=== PATIENT | female | born 1985 | race Caucasian/White ===

== ENCOUNTER → 2019-08-19 15:02 | Outpatient (BNVA) | payer MEDICARE, MEDICAID, SELFPAY | PROVIDERS: Family Provider Internal Medicine; PCP Internal Medicine; Visit Provider Specialist | DX: G43.711 Chronic migraine without aura, intractable, with status migrainosus (principal) | CPT/HCPCS: 64615; J0585 ==

== ENCOUNTER → 2019-11-25 15:10 | Outpatient (BNVA) | payer MEDICARE, MEDICAID, SELFPAY | PROVIDERS: Family Provider Internal Medicine; PCP Internal Medicine; Visit Provider Specialist | DX: G43.711 Chronic migraine without aura, intractable, with status migrainosus (principal); F41.9 Anxiety disorder, unspecified | CPT/HCPCS: 64615; 99212; 99213; J0585 ==

== ENCOUNTER → 2019-12-01 10:05 | Outpatient (BNVA) | payer MEDICARE, MEDICAID, SELFPAY | PROVIDERS: Family Provider Internal Medicine; PCP Internal Medicine; Visit Provider Nurse Practitioner Women's Health | DX: L70.0 Acne vulgaris (principal); Z30.41 Encounter for surveillance of contraceptive pills; N92.1 Excessive and frequent menstruation with irregular cycle | CPT/HCPCS: 80053 ==

== ENCOUNTER 2020-09-05 20:08 | Emergency (ER) | payer MEDICARE, MEDICAID, SELFPAY ==
--- NOTE | 2020-09-05 20:16 | XR_ITS ---
WS: [id number] LEFT FOOT: 3 VIEW(S) TECHNIQUE: AP, oblique and lateral. HISTORY: injury COMPARISON: None available. No acute fracture or dislocation. Normal tarsal/metatarsal alignment. Soft tissue injury at the first distal phalanx. XR/XR foot LT min 3V* [id number] IMPRESSION: Soft tissue injury distal first phalanx but no fracture.
[2020-09-05 21:01] VITALS: BP 128/83; PULSE 105; RESP 14; TEMP 36.7; O2SAT 96; BMI 20.5
[2020-09-05] MEDS: HYDROcodone-acetaminophen 5-325 mg Tablet 1 TAB PO (21:17)
[2020-09-05 23:51] VITALS: BP 144/90; PULSE 96; RESP 18; O2SAT 97
[2020-09-06] MEDS: lidocaine 1% INJ 20 mL INTRADERMA (00:11)
[2020-09-06] MEDS: ondansetron 4 MG Tablet 8 MG PO (00:14)
[2020-09-06] MEDS: cephALEXin 500 mg Capsule PO (00:54)
[2020-09-06] MEDS: HYDROcodone-acetaminophen 5-325 mg Tablet 1 TAB PO (00:55)
[2020-09-06 00:57] VITALS: BP 132/90; PULSE 91; RESP 16; O2SAT 95
--- NOTE | 2020-09-06 01:31 | ED_ITS ---
HPI - Extremity Problem General: Chief complaint: Extremity Injury, Lower Stated complaint: GREAT TOE PAIN/L FOOT Time Seen by Provider: 09/05/20 23:50 History of Present Illness: HPI Narrative: Patient dropped a keg on her right large toe tonight while at work. Her toenail was avulsed. She comes in with wrapped in. Complain of pain. Complaint: extremity pain Onset (ago): hour(s) Pain Consistency: constant Location: right and toe Severity scale (1-10): 4 Quality: aching Associated symptoms: Deny fever(s) Review of Systems Const: Denies: fever(s) or chills Skin/Breast: Reports: other (Toenail avulsion right big toe) Psych: Denies: anxiety or depression PFSH ED PFSH: Medical History (Updated 09/06/20 @ 00:27 by YAMILEX Finch) Anxiety Chiari malformation Chronic migraine without aura, intractable, with status migrainosus GERD (gastroesophageal reflux disease) History of PCOS Metrorrhagia Surgical History H/O removal of cyst on her back History of cholecystectomy (~2010) Family History Father Hypertension Mother Hypertension Grandmother Hypertension Paternal grandmother Social History Smoking and tobacco status: never smoked Alcohol intake: never Female Reproductive History: Para: 1 Spontaneous abortions: No Physical Exam Const: COMMON NORMALS: average body habitus Psych: COMMON NORMALS: mental status grossly normal Skin: OTHER: Toenail partially avulsed on the right big toe which is hanging on by skin on the medial border some none on the lateral border no active bleeding x-ray was showed no fracture Course Vital Signs: Vital signs: Vital Signs Temperature 98.1 F 09/05/20 21:01 Pulse Rate 91 09/06/20 00:57 Respiratory Rate 16 09/06/20 00:57 Blood Pressure 132/90 09/06/20 00:57 Pulse Oximetry 95 09/06/20 00:57 MDM - Extremity (Nontraumatic) MDM Narrative: Medical decision making narrative: Removed toenail on right large toe. With lidocaine prep 1% and Betadine. No difficulty with removal was wrapped Discharge Plan Discharge Patient Disposition: Home Clinical Impression: Avulsion of nail plate Condition: Stable Prescriptions: New hydrocodone-acetaminophen 5-325 mg tablet 1 tab PO TID PRN (Reason: pain) Qty: 7 RF: 0 Keflex 500 mg capsule 500 mg PO TID 7 Days Qty: 21 RF: 0 No Action topiramate [Topamax] 100 mg tablet 150 mg PO QDAY RF: 0 Botox 100 unit recon soln 155 unit IM ONCE RF: 0 pantoprazole [Protonix] 20 mg tablet,delayed release (DR/EC) 20 mg PO QDAY RF: 0 lorazepam 1 mg tablet 1 mg PO DAILY PRN (Reason: anxiety) Qty: 30 RF: 1 spironolactone 50 mg tablet 50 mg PO QAM Qty: 90 RF: 3 cyclobenzaprine 10 mg tablet 10 mg PO Q8H Qty: 30 RF: 1 diazepam [Valium] 2 mg tablet 5 mg PO .PRN PRN (Reason: anxiety) Qty: 7 RF: 2 bupropion HCl 150 mg tablet extended release 24 hr 150 mg PO QAM Qty: 30 RF: 5 Emgality Pen 120 mg/mL pen injector 120 mg SUBCUT ONCE Qty: 1 RF: 0 Emgality Syringe 120 mg/mL syringe 240 mg SUBCUT .MONTHLY Qty: 2 RF: 4 trazodone 100 mg tablet 100 mg PO QDAY Qty: 30 RF: 3 norethindrone-ethin estradiol 1-35 mg-mcg (21) tablet 1 tab PO QDAY Qty: 63 RF: 1 fluconazole [Diflucan] 150 mg tablet 150 mg PO DAILY Qty: 2 RF: 0 Discharge Orders: Discharge ED (Routine); Ordered 09/06/20 Ordered By: Qasim Bernardo Referrals: Stone Rebolledo DO [Primary Care Provider] - Discharge Diet: Usual diet Discharge Activity: Increase activity as tolerated Patient Instructions: Toenail/Fingernail Removal (ED) Activity Restrictions/Additional Instructions: Follow-up with medical provider as directed. Take medications as prescribed. Return to the ER or your medical provider if condition worsens. Please read and understand discharge instructions. If any questions ask please. Apply petroleum jelly or Vaseline over the wound daily keep a nonstick pad on it and dress it daily follow-up your family medical provider any problems develop Coding Level of Care Code ED Oval Or Circular Glass Cutter for Chg Fwd Exam Expanded Problem Focused
== END 2020-09-06 00:58 | disposition home or self-care (01) ==
PROVIDERS: Emergency Provider Nurse Practitioner Family; PCP Internal Medicine
DX: S91.201A Unspecified open wound of right great toe with damage to nail, initial encounter (principal); W20.8XXA Other cause of strike by thrown, projected or falling object, initial encounter
CPT/HCPCS: 12345; 73630; 99281; 99283; Q0162

== ENCOUNTER → 2020-11-14 16:30 | Outpatient (BNVA) | payer MEDICARE, MEDICAID, SELFPAY | PROVIDERS: PCP Internal Medicine; Visit Provider Nurse Practitioner Women's Health | DX: N92.1 Excessive and frequent menstruation with irregular cycle (principal); L70.0 Acne vulgaris; K21.9 Gastro-esophageal reflux disease without esophagitis; Z01.419 Encounter for gynecological examination (general) (routine) without abnormal findings; Z87.42 Personal history of other diseases of the female genital tract; N30.10 Interstitial cystitis (chronic) without hematuria | CPT/HCPCS: 80048 ==

== ENCOUNTER → 2020-11-22 13:06 | Outpatient (BNVA) | payer MEDICARE, MEDICAID, SELFPAY | PROVIDERS: PCP Internal Medicine; Visit Provider Nurse Practitioner Women's Health | DX: R93.89 Abnormal findings on diagnostic imaging of other specified body structures (principal) | CPT/HCPCS: 76830 ==

== ENCOUNTER → 2020-12-14 09:58 | Outpatient (BNVA) | payer MEDICARE, MEDICAID, SELFPAY | PROVIDERS: PCP Internal Medicine; Visit Provider Specialist | DX: G43.709 Chronic migraine without aura, not intractable, without status migrainosus (principal) | CPT/HCPCS: 64615; J0585 ==

== ENCOUNTER 2021-01-22 16:12 | Outpatient (CLI) | payer MEDICARE, MEDICAID, SELFPAY | END 2021-01-22 16:13 | disposition home or self-care (01) | LOC: SPT 16:13 | PROVIDERS: PCP Internal Medicine; Visit Provider Podiatrist Foot & Ankle Surgery | DX: Z46.89 Encounter for fitting and adjustment of other specified devices (principal); M79.673 Pain in unspecified foot | CPT/HCPCS: 97760; L1902 ==

== ENCOUNTER → 2021-03-08 13:07 | Outpatient (BNVA) | payer MEDICARE, MEDICAID, SELFPAY | PROVIDERS: PCP Internal Medicine; Visit Provider Specialist | DX: G43.709 Chronic migraine without aura, not intractable, without status migrainosus (principal); G25.81 Restless legs syndrome; G93.5 Compression of brain | CPT/HCPCS: 64615; 99213; J0585 ==

== ENCOUNTER → 2021-07-19 11:43 | Outpatient (BNVA) | payer MEDICARE, MEDICAID, SELFPAY | PROVIDERS: PCP Internal Medicine; Visit Provider Specialist | DX: G43.711 Chronic migraine without aura, intractable, with status migrainosus (principal) | CPT/HCPCS: 64615; J0585 ==

== ENCOUNTER → 2021-10-11 12:00 | Outpatient (BNVA) | payer MEDICARE, MEDICAID, SELFPAY | PROVIDERS: PCP Internal Medicine; Visit Provider Specialist | DX: G43.711 Chronic migraine without aura, intractable, with status migrainosus (principal); R25.2 Cramp and spasm | CPT/HCPCS: 64615; 99213; J0585 ==

== ENCOUNTER → 2021-11-21 09:45 | Outpatient (BNVA) | payer MEDICARE, MEDICAID, SELFPAY | PROVIDERS: PCP Internal Medicine; Visit Provider Nurse Practitioner Women's Health | DX: L70.9 Acne, unspecified (principal); Z01.419 Encounter for gynecological examination (general) (routine) without abnormal findings; G25.81 Restless legs syndrome; N92.1 Excessive and frequent menstruation with irregular cycle; L70.0 Acne vulgaris; K21.9 Gastro-esophageal reflux disease without esophagitis; Z87.42 Personal history of other diseases of the female genital tract | CPT/HCPCS: 80048; 83735; 87624 ==

== ENCOUNTER → 2022-01-03 12:18 | Outpatient (BNVA) | payer MEDICARE, MEDICAID, SELFPAY | PROVIDERS: PCP Internal Medicine; Visit Provider Specialist | DX: G43.711 Chronic migraine without aura, intractable, with status migrainosus (principal); G25.81 Restless legs syndrome; R20.0 Anesthesia of skin; R20.2 Paresthesia of skin | CPT/HCPCS: 64615; 99213; J0585 ==

== ENCOUNTER → 2022-03-28 13:06 | Outpatient (BNVA) | payer MEDICARE, MEDICAID, SELFPAY | PROVIDERS: PCP Internal Medicine; Visit Provider Specialist | DX: G43.711 Chronic migraine without aura, intractable, with status migrainosus (principal); F41.9 Anxiety disorder, unspecified; G25.81 Restless legs syndrome | CPT/HCPCS: 64615; 99213; J0585 ==

== ENCOUNTER → 2022-05-30 10:00 | Outpatient (BNVA) | payer MEDICARE, MEDICAID, SELFPAY | PROVIDERS: PCP Internal Medicine; Visit Provider Nurse Practitioner Women's Health | DX: N89.8 Other specified noninflammatory disorders of vagina (principal) | CPT/HCPCS: 87070; 87205 ==

== ENCOUNTER → 2022-06-20 12:54 | Outpatient (BNVA) | payer MEDICARE, MEDICAID, SELFPAY | PROVIDERS: PCP Internal Medicine; Visit Provider Specialist | DX: G43.711 Chronic migraine without aura, intractable, with status migrainosus (principal) | CPT/HCPCS: 64615 ==

== ENCOUNTER → 2022-09-12 13:13 | Outpatient (BNVA) | payer MEDICARE, MEDICAID, SELFPAY | PROVIDERS: PCP Internal Medicine; Visit Provider Specialist | DX: G43.711 Chronic migraine without aura, intractable, with status migrainosus (principal); G25.81 Restless legs syndrome; Z85.828 Personal history of other malignant neoplasm of skin; Z98.890 Other specified postprocedural states | CPT/HCPCS: 64615; 99212; J0585 ==

== ENCOUNTER 2022-09-16 13:58 | Outpatient (CLI) | payer MEDICARE, MEDICAID, SELFPAY ==
[2022-09-16 15:52] LABS: Basophils # 0.1 10^3/uL (0.0-0.1); Basophils % 0.6 %; Eosinophils # 0.1 10^3/uL (0.0-0.8); Eosinophils % 1.6 %; Hematocrit 34.1 % (37.0-47.0); Hemoglobin 10.8 g/dL (11.5-15.3); Lymphocytes % 34.9 %; Mean Corpuscular HGB Conc 31.7 g/dL (30.0-36.0); Mean Corpuscular Hemoglobin 32.3 pg (28.0-34.0); Mean Corpuscular Volume 102.1 fl (81-99); Mean Platelet Volume 9.1 fL (7.4-10.4); Monocytes # 0.8 10^3/uL (0.2-0.9); Monocytes % 8.9 %; Neutrophils # 4.59 10^3/uL (1.8-7.7); Neutrophils % 53.2 %; Nucleated Red Blood Cells % 0 %; Platelet Count 414 10^3/cmm (130-400); Red Blood Count 3.34 10^6/uL (4.1-5.3); Red Cell Distribution Width 13.3 % (12.1-15.1); White Blood Count 8.6 10^3/uL (4.0-10.0)
[2022-09-16 16:52] LABS: Alanine Aminotransferase 20 U/L (0-33); Albumin Level 4.6 g/dL (3.5-5.2); Alkaline Phosphatase 52 U/L (35-105); Aspartate Amino Transferase 32 U/L (0-32); Blood Urea Nitrogen 11 mg/dL (6-20); Calcium 9.8 mg/dL (8.5-10.5); Carbon Dioxide 26 mmol/L (22-29); Chloride 97 mmol/L (98-107); Globulin 2.4 g/dL (1.3-4.6); Glomerular Filtration Rate 81.2 mL/min (90-130); Glucose 89 mg/dL (65-115); Osmolality Calculated 281 mOsm/kg (285-295); Sodium 136 mmol/L (136-145); Thyroid Stimulating Hormone 1.94 uIU/mL (0.27-4.20); Total Bilirubin 0.6 mg/dL (0.15-1.2); Vitamin B12 1007 pg/mL (232-1245)
[2022-09-16 17:48] LABS: Folate Level > 20.0 ng/mL (4.8-37.3)
[2022-09-20 12:16] LABS: Vit D 1,25 (Oh)2, Total 52 pg/mL (18-72); Vit D2 1,25 (Oh)2 <8 pg/mL; Vit D3 1,25 (Oh)2 52 pg/mL
== END 2022-09-16 13:59 | disposition home or self-care (01) ==
PROVIDERS: PCP Internal Medicine; Visit Provider Specialist
DX: R20.0 Anesthesia of skin (principal); R20.2 Paresthesia of skin
CPT/HCPCS: 36415; 80053; 82607; 82652; 82746; 83735; 84443; 85025

== ENCOUNTER → 2022-11-26 09:54 | Outpatient (BNVA) | payer MEDICARE, MEDICAID, SELFPAY | PROVIDERS: PCP Internal Medicine; Visit Provider Nurse Practitioner Women's Health | DX: R87.610 Atypical squamous cells of undetermined significance on cytologic smear of cervix (ASC-US) (principal); R87.810 Cervical high risk human papillomavirus (HPV) DNA test positive; D64.9 Anemia, unspecified | CPT/HCPCS: 85025; 87624 ==

== ENCOUNTER 2022-12-03 15:44 | Outpatient (CLI) | payer MEDICARE, MEDICAID, SELFPAY | END 2022-12-03 15:45 | disposition home or self-care (01) | LOC: LAB 15:51 | PROVIDERS: PCP Internal Medicine; Visit Provider Nurse Practitioner Women's Health | DX: R30.0 Dysuria (principal) | CPT/HCPCS: 87077; 87086; 87186 ==

== ENCOUNTER → 2022-12-12 10:25 | Outpatient (BNVA) | payer MEDICARE, MEDICAID, SELFPAY | PROVIDERS: PCP Internal Medicine; Visit Provider Specialist | DX: G43.711 Chronic migraine without aura, intractable, with status migrainosus (principal) | CPT/HCPCS: 64615; J0585 ==

== ENCOUNTER → 2023-01-31 11:40 | Outpatient (BNVA) | payer MEDICARE, MEDICAID, SELFPAY | PROVIDERS: PCP Internal Medicine; Visit Provider Nurse Practitioner Women's Health | DX: R82.71 Bacteriuria (principal) | CPT/HCPCS: 81000; 87086 ==

== ENCOUNTER → 2023-03-05 14:55 | Outpatient (BNVA) | payer MEDICARE, MEDICAID, SELFPAY | PROVIDERS: PCP Internal Medicine; Visit Provider Nurse Practitioner Women's Health | DX: D64.9 Anemia, unspecified (principal) | CPT/HCPCS: 82607; 82728; 82746; 83550 ==

== ENCOUNTER → 2023-03-20 11:37 | Outpatient (BNVA) | payer MEDICARE, MEDICAID, SELFPAY | PROVIDERS: PCP Internal Medicine; Visit Provider Specialist | DX: G43.711 Chronic migraine without aura, intractable, with status migrainosus (principal) | CPT/HCPCS: 64615; J0585 ==

== ENCOUNTER → 2023-06-19 11:26 | Outpatient (BNVA) | payer MEDICARE, MEDICAID, SELFPAY | PROVIDERS: PCP Internal Medicine; Visit Provider Specialist | DX: G43.711 Chronic migraine without aura, intractable, with status migrainosus (principal) | CPT/HCPCS: 64615; 95911 ==

== ENCOUNTER → 2023-09-25 11:03 | Outpatient (BNVA) | payer MEDICARE, MEDICAID, SELFPAY | PROVIDERS: PCP Internal Medicine; Visit Provider Specialist | DX: G43.711 Chronic migraine without aura, intractable, with status migrainosus (principal) | CPT/HCPCS: 64615 ==

== ENCOUNTER 2023-10-21 13:15 | Outpatient (CLI) | payer MEDICARE, MEDICAID, SELFPAY ==
[2023-10-21 14:29] LABS: Basophils % 0.5 %; Eosinophils # 0.2 10^3/uL (0.0-0.8); Eosinophils % 2.3 %; Hematocrit 37.4 % (36-47); Lymphocytes # 2.4 10^3/uL (0.8-4.8); Lymphocytes % 31.9 %; Mean Corpuscular HGB Conc 31.6 g/dL (30-55); Mean Corpuscular Hemoglobin 31.8 pg (27-33); Mean Corpuscular Volume 100.8 fl (85-98); Mean Platelet Volume 9.4 fL (7.4-10.4); Monocytes # 0.6 10^3/uL (0.2-0.9); Monocytes % 7.8 %; Neutrophils # 4.22 10^3/uL (1.8-7.7); Neutrophils % 57.2 %; Nucleated Red Blood Cells % 0 %; Platelet Count 389 10^3/cmm (157-399); Red Blood Count 3.71 10^6/uL (3.85-5.65); Red Cell Distribution Width 12.1 % (12.1-15.1); White Blood Count 7.39 10^3/uL (3.29-11.43)
[2023-10-21 15:02] LABS: Bilirubin Urine 2+ (Negative); Blood Urine Neg (Negative); Glucose Urine UA Norm (Normal); Ketones Urine Negative (Negative); Nitrate Urine Positive (Negative); Protein Urine 1+ (Negative); Specific Gravity, Urine 1.005 (1.005-1.030); Urine Appearance Clear (CLEAR); Urine Color Orange (Yellow); pH Urine 5 (5-7)
[2023-10-21 15:03] LABS: Add Urine Microscopic? YES; Leukocyte Esterase Urine Negative (Negative); Urobilinogen Urine 4 mg/dL (Negative)
[2023-10-21 15:06] LABS: Bacteria Urine 1+ /hpf; RBC Urine 0-4 /hpf (0-2); Squamous Epithelial Cell Urine 0-4 /hpf (0-5); WBC Urine 15-25 /hpf (0-5)
[2023-10-21 15:07] LABS: Add Urine Culture? Yes
[2023-10-22 17:15] LABS: Beef (27) IgE <0.10 kU/L; Beef Class 0; Cow's Milk (F2) IgE <0.10 kU/L; Cow's Milk Classification 0; Lamb (F88) IgE <0.10 kU/L; Lamb Class 0; Pork (F26) IgE <0.10 kU/L; Pork Class 0
[2023-10-23 18:28] LABS: Galactose-alpha-1,3 IgE <0.10 kU/L (<0.10)
== END 2023-10-21 13:16 | disposition home or self-care (01) ==
LOC: LAB 13:19
PROVIDERS: PCP Internal Medicine; Visit Provider Specialist
DX: L50.0 Allergic urticaria (principal); D89.40 Mast cell activation, unspecified
CPT/HCPCS: 36415; 81001; 83520; 85025; 86003; 86008; 87077; 87086; 87186

== ENCOUNTER → 2023-12-09 11:51 | Outpatient (BNVA) | payer MEDICARE, SELFPAY | PROVIDERS: PCP Internal Medicine; Visit Provider Nurse Practitioner Women's Health | DX: R87.610 Atypical squamous cells of undetermined significance on cytologic smear of cervix (ASC-US) (principal); R87.810 Cervical high risk human papillomavirus (HPV) DNA test positive; Z01.419 Encounter for gynecological examination (general) (routine) without abnormal findings; Z87.42 Personal history of other diseases of the female genital tract; R87.612 Low grade squamous intraepithelial lesion on cytologic smear of cervix (LGSIL) | CPT/HCPCS: 87624 ==

== ENCOUNTER → 2023-12-25 11:06 | Outpatient (BNVA) | payer MEDICARE, SELFPAY | PROVIDERS: PCP Internal Medicine; Visit Provider Specialist | DX: G43.711 Chronic migraine without aura, intractable, with status migrainosus (principal); G25.81 Restless legs syndrome; K21.9 Gastro-esophageal reflux disease without esophagitis | CPT/HCPCS: 64615; 99212 ==

== ENCOUNTER → 2024-01-13 11:23 | Outpatient (BNVA) | payer MEDICARE, SELFPAY | PROVIDERS: PCP Internal Medicine; Visit Provider Nurse Practitioner Women's Health | DX: R39.9 Unspecified symptoms and signs involving the genitourinary system (principal); R82.90 Unspecified abnormal findings in urine; R82.71 Bacteriuria; N89.8 Other specified noninflammatory disorders of vagina | CPT/HCPCS: 84315; 87086 ==

== ENCOUNTER → 2024-03-29 13:52 | Outpatient (BNVA) | payer MEDICARE, SELFPAY | PROVIDERS: PCP Internal Medicine; Visit Provider Nurse Practitioner Women's Health | DX: Z11.3 Encounter for screening for infections with a predominantly sexual mode of transmission (principal); R30.0 Dysuria | CPT/HCPCS: 84315; 87086; 87491; 87591 ==

== ENCOUNTER → 2024-04-08 09:45 | Outpatient (BNVA) | payer MEDICARE, SELFPAY | PROVIDERS: PCP Internal Medicine; Visit Provider Specialist | DX: G25.81 Restless legs syndrome (principal); G43.711 Chronic migraine without aura, intractable, with status migrainosus; K21.9 Gastro-esophageal reflux disease without esophagitis | CPT/HCPCS: 64615; 96372 ==

== ENCOUNTER → 2024-06-10 13:51 | Outpatient (BNVA) | payer MEDICARE, SELFPAY | PROVIDERS: PCP Internal Medicine; Visit Provider Nurse Practitioner Women's Health | DX: R30.0 Dysuria (principal) | CPT/HCPCS: 84315; 87086 ==

== ENCOUNTER → 2024-07-16 13:42 | Outpatient (BNVA) | payer MEDICARE, SELFPAY | PROVIDERS: PCP Internal Medicine; Visit Provider Specialist | DX: G43.711 Chronic migraine without aura, intractable, with status migrainosus (principal); G25.81 Restless legs syndrome; G72.9 Myopathy, unspecified; M81.0 Age-related osteoporosis without current pathological fracture; K21.9 Gastro-esophageal reflux disease without esophagitis | CPT/HCPCS: 36415; 64615; 80053; 82306; 82607; 85025; 99213 ==

== ENCOUNTER → 2024-10-15 14:11 | Outpatient (BNVA) | payer MEDICARE, SELFPAY | PROVIDERS: PCP Internal Medicine; Visit Provider Specialist | DX: G43.711 Chronic migraine without aura, intractable, with status migrainosus (principal); G31.84 Mild cognitive impairment of uncertain or unknown etiology | CPT/HCPCS: 64615; J9999 ==

== ENCOUNTER → 2024-12-14 13:10 | Outpatient (BNVA) | payer MEDICARE, SELFPAY | PROVIDERS: PCP Internal Medicine; Visit Provider Nurse Practitioner Women's Health | DX: R87.612 Low grade squamous intraepithelial lesion on cytologic smear of cervix (LGSIL) (principal) | CPT/HCPCS: 87624 ==

== ENCOUNTER → 2025-01-24 11:59 | Outpatient (BNVA) | payer MEDICARE, SELFPAY | PROVIDERS: PCP Internal Medicine; Visit Provider Specialist | DX: G43.711 Chronic migraine without aura, intractable, with status migrainosus (principal) | CPT/HCPCS: 64615; J9999 ==

== ENCOUNTER → 2025-05-12 14:36 | Outpatient (BNVA) | payer MEDICARE, SELFPAY | PROVIDERS: PCP Internal Medicine; Visit Provider Specialist | DX: G43.711 Chronic migraine without aura, intractable, with status migrainosus (principal); G25.81 Restless legs syndrome; K21.9 Gastro-esophageal reflux disease without esophagitis; G72.9 Myopathy, unspecified; R03.0 Elevated blood-pressure reading, without diagnosis of hypertension | CPT/HCPCS: 64615; J9999 ==